=== PATIENT | male | born 1950 | race Caucasian/White ===

== ENCOUNTER 2024-05-20 07:58 | Emergency (ER) | payer MEDICARE, SELFPAY ==
[2024-05-20 08:03] VITALS: BP 149/75
[2024-05-20 08:26] LABS: % Basophils 0.3 % (0-2); % Eosinophils 1.4 % (0-6); % Immature Granulocytes 0.3 % (0-0.5); % Lymphocytes 11.4 % (20.5-51.1); % Monocytes 5.9 % (1.7-9.3); % Neutrophils 80.7 % (42.2-75.2); Absolute Eosinophils 0.2 10^3/uL (0-0.7); Absolute Lymphocytes 1.3 10^3/uL (1.2-3.4); Absolute Monocytes 0.7 10^3/uL (0.1-0.6); Absolute Neutrophils 9.4 10^3/uL (1.4-6.5); Hematocrit 43.5 % (39.0-52.0); Hemoglobin 15.1 g/dL (13.0-18.0); Mean Corp Hgb Conc. 34.7 g/dL (33.0-37.0); Mean Corpuscular Volume 89.3 fL (80.0-94.0); Mean Platelet Volume 10.5 fL (7.4-10.4); Nucleated Red Blood Cells % 0 % (-); Platelet Count 182 10^3/uL (130-400); Red Blood Cell Count 4.87 10^6/uL (4.70-6.10); Red Cell Dist. Width 12.8 % (11.5-14.5); White Blood Cell Count 11.7 10^3/uL (4.8-10.8)
[2024-05-20 08:40] LABS: ALT (SGPT) 17 U/L (0-50); AST (SGOT) 24 U/L (17-59); Albumin 4.4 g/dl (3.5-5.0); Alkaline Phosphatase 87 U/L (38-126); Blood Urea Nitrogen 23 mg/dl (9-20); Calcium 9.5 mg/dl (8.4-10.2); Carbon Dioxide 26 mmol/L (22-30); Chloride 106 mmol/L (98-107); Glucose 111 mg/dl (70-99); Potassium 4.5 mmol/L (3.5-5.1); Sodium 140 mmol/L (135-145); Total Bilirubin 2.1 mg/dl (0.2-1.3); Total Protein 7.1 g/dl (6.3-8.2); eGFR > 60.00
[2024-05-20 08:58] LABS: Troponin I < 0.012 ng/ml
[2024-05-20 09:05] VITALS: BP 135/75
--- NOTE | 2024-05-20 09:05 | ED.GENMED ---
History of Present Illness
General
Chief Complaint: Chest Pain
Time Seen by Provider: 05/20/24 08:57
History of Present Illness
History of Present Illness:
73-year-old male with history of SVT status post ablation, paroxysmal atrial fibrillation not currently on anticoagulants, and hyperlipidemia presents to the emergency department for evaluation of epigastric pain beginning abruptly this morning,
woke him up from sleep. Reports a sharp pain in the epigastrium, does not radiate. Did not eat this morning. Pain is worse with lying supine. No exertional pleuritic nature to it. Denies fever, chills, sweats, shortness of breath. He did have
1 episode of emesis this morning. Prior abdominal surgeries: Appendectomy
Past History
Past History
ED Past Medical History: Arrthythmia (PSVT)
ED Past Surgical History: None
Patient has exhibited threatening behavior?: No
PSI?: No
Social History
Tobacco: Non-smoker
Alcohol: Occasional
Review of Systems
Review of Systems
Allergies reviewed?: Yes
All Other Systems: ROS reviewed and negative except as documented in HPI and ROS
Phy Exam
Physical Exam
Physical Exam:
GEN: Well appearing, NAD, WDWN
Eyes: PERRLA, EOMs intact, no scleral icterus
HENT: NCAT, oral mucosa moist, no JVD
Lungs: CTAB, no wheezes, rales, rhonchi, normal chest wall excursion
Cardiac: RRR, no M/R/G, no peripheral edema. Radial pulses 2+ bilat
Abdomen: Soft, moderate tenderness to the epigastric peritoneal signs
Neuro: AO x 3
MSK: No gross deformity or ecchymosis. No edema. Digital clubbing noted
Skin: No rashes, petechiae. Normal color, no pallor or jaundice.
Psych: Calm, cooperative, proper hygiene
Scores
Heart Score for Chest Pain Patients
STEMI patient?: No
History: Slightly or Non-Suspicious
ECG: Normal
Age: >/= 65 years
Risk Factors: >/= 3 Risk Factors or History of CAD
Troponin: </= Normal Limit
Heart Score for Chest Pain Patients: 4
Heart Score Risk: 20.3% MACE over next 6 weeks
Course
Orders/Labs/Results
Orders:
Orders
05/20/24 08:02
EKG [Electrocardiogram (*1)] Urgent
Reason for Study: Chest Pain
EKG- Treatment ONCE
05/20/24 08:15
Complete Blood Count/With Diff Urgent
Comprehensive Metabolic Panel Urgent
Lipase Urgent
Troponin I Urgent
05/20/24 08:54
CXR2 [CR Chest - 2 Views ] Urgent
Comment:
Reason For Exam: chest pain/shortness of breath
05/20/24 09:05
Mag Hydrox/Al Hydrox/Simeth [Maalox] 30 ml Phenobarb/Hyoscy/Atropine/Scop [] 10 ml Viscous Lidocaine 2% [Xylocaine Viscous Cup] 10 ml PO NOW
05/20/24 09:10
Add On- LAB Urgent
Tests Added?: lipase
05/20/24 09:49
Mag Hydrox/Al Hydrox/Simeth [Maalox] 30 ml .ROUTE .STK-MED ONE
Phenobarb/Hyoscy/Atropine/Scop [] 10 ml .ROUTE .STK-MED ONE
Viscous Lidocaine 2% [Xylocaine Viscous Cup] 15 ml .ROUTE .STK-MED ONE
05/20/24 10:55
CT Abd/Pel (IV only)-DH only Urgent
Comment:
Reason For Exam: epigastric pain
05/20/24 11:11
Ondansetron Injectable [Zofran] 4 mg IV NOW STA
05/20/24 12:32
Electrocardiogram (*1) Urgent
Reason for Study: Abdominal Pain
EKG- Treatment ONCE
05/20/24 12:35
Troponin I Urgent
Abnormal Lab Results
05/20/24
08:15
WBC 11.7 H 10^3/uL
(4.8-10.8)
MPV 10.5 H fL
(7.4-10.4)
Absolute Neuts (auto) 9.4 H 10^3/uL
(1.4-6.5)
Absolute Monos (auto) 0.7 H 10^3/uL
(0.1-0.6)
Neutrophils % 80.7 H %
(42.2-75.2)
Lymphocytes % 11.4 L %
(20.5-51.1)
BUN 23 H mg/dl
(9-20)
Glucose 111 H mg/dl
(70-99)
Total Bilirubin 2.1 H mg/dl
(0.2-1.3)
Lipase 363 H U/L
(23-300)
05/20/24 08:15
05/20/24 08:15
Vital Signs
Initial and Last Documented VS:
Initial Vital Signs
Temp Pulse Resp BP Pulse Ox
98.4 F 64 20 149/75 100
05/20/24 08:03 05/20/24 08:03 05/20/24 08:03 05/20/24 08:03 05/20/24 08:03
Last Documented Vital Signs
Temp Pulse Resp BP Pulse Ox
98.4 F 62 13 123/67 95
05/20/24 08:03 05/20/24 13:15 05/20/24 13:15 05/20/24 13:00 05/20/24 13:15
MDM/Problems Addressed
MDM/Problems Addressed:
73-year-old male presents with acute onset of epigastric/lower chest pain that began this morning. Pain is worse with lying supine suggesting GERD. Given his age cardiac workup was initiated showing an initial and delta troponins is negative and
unremarkable EKGs. Last cardiac cath was 3 years ago and relatively unremarkable for coronary artery disease. Additionally the patient had a CT scan of the chest 2 years ago showing no evidence of aneurysmal dilatation of the aorta thus I have a
low clinical suspicion for aortic emergency. Patient's pain gradually resolved while in the emergency department. He does have cholelithiasis on CT scan however the positional nature is much more suspicious for GERD, will start PPI and recommend
outpatient primary care follow-up
Comment
Comment:
EKG independently interpreted by me shows normal sinus rhythm at a rate of [address] changes concerning for ischemia, QTc 460. Comparable to past EKGs most recently June 2022
*Critical Care Note
Total Time (30-74mins, 75-104mins- exclusive of procedures): Not Applicable
Update Note
Update Note:
1102: Pt's pain has not improved after GI cocktail. Lipase minimally elevated. Continues with epigastric tenderness. Will obtain CT A/P
ED Attending Note
-
Portions of this chart may have been created with voice recognition software.� Occasional wrong word or��sound alike� substitutions may have occurred due to the inherent limitations of voice recognition software.
Discharge Plan
Departure
Patient Disposition: Home (Routine Discharge)
Date of Disposition: 05/20/24
Time of Disposition: 13:19
Patient with high blood pressure during this ER visit?: No
Discharge Problem:
Chest pain due to GERD
Instructions: Acid Reflux and GERD in Adults (DC)
Prescriptions:
New
pantoprazole 40 mg tablet,delayed release (DR/EC)
40 mg PO DAILY Qty: 20 0RF
No Action
aspirin [Adult Aspirin Regimen] 81 MG tablet,delayed release (DR/EC)
81 mg PO DAILY
alum-mag hydroxide-simeth [Mag-Al Plus] 200-200-20 mg/5 mL Suspension
30 ml PO Q4HPRN PRN (Reason: heartburn) Qty: 355 0RF
atorvastatin 40 MG tablet
40 mg PO QPM
pantoprazole 40 mg tablet,delayed release (DR/EC)
40 mg PO DAILY
metoprolol succinate 25 MG tablet extended release 24 hr
25 mg PO DAILY
Rx Instructions:
Please note decreased dose
Referrals:
Joselyn Lind MD [Family Provider] -
Tip Thomas MD [Active] -
Activity Restrictions/Additional Instructions:
Your CT scan showed gallstones. Although I do not suspect this is causing your pain, please note if high fat foods cause increased abdominal pain, you should see a surgeon to discuss a gallbladder removal
Interventions
Interventions:
*Risk Screen - Suicide Last Done: 05/20/24 08:03
*General Assessment Last Done: 05/20/24 08:03
*Neglect/Abuse Screening Last Done: 05/20/24 08:03
ED- Fall Risk Assessment Last Done: 05/20/24 09:07
*ED COVID-19 Vaccine History Last Done: 05/20/24 09:07
*Nursing Disposition Last Done: 05/20/24 13:25
ED- Cardiac Assessment Last Done: 05/20/24 09:07
Discharge Date and Time
Discharge Date/Time: 05/20/24 13:25
Print Language: SWEDISH
[2024-05-20 09:07] VITALS: BMI 23.7
[2024-05-20] MEDS: MAALOX 50 PO (09:51)
[2024-05-20 10:00] VITALS: BP 140/75
[2024-05-20 10:39] LABS: Lipase 363 U/L (23-300)
[2024-05-20 11:00] VITALS: BP 154/71
[2024-05-20] MEDS: ZOFRAN 4 MG IV (11:17)
[2024-05-20 12:33] VITALS: BP 141/74
--- NOTE | 2024-05-20 12:37 | EDRN ---
Repeat troponin drawn and sent at this time.
[2024-05-20 13:00] VITALS: BP 123/67
[2024-05-20 13:09] LABS: Troponin I < 0.012 ng/ml
== END 2024-05-20 13:25 | disposition home or self-care (01) ==
LOC: EMR 07:58
PROVIDERS: Emergency Medicine; Physician Assistant; EMERGENCY PHYSICIAN Emergency Medicine; FAMILY PHYSICIAN Family Medicine
DX: K21.9 Gastro-esophageal reflux disease without esophagitis (principal); R07.89 Other chest pain; R11.10 Vomiting, unspecified; K80.20 Calculus of gallbladder without cholecystitis without obstruction; I48.0 Paroxysmal atrial fibrillation; E78.5 Hyperlipidemia, unspecified; Z79.01 Long term (current) use of anticoagulants
CPT/HCPCS: 99285; 96374; 71046; 74177; 80053; 83690; 84484; 85025; 93005; Q9967